=== PATIENT | male | born 1990 | race African-American/Black ===

== ENCOUNTER 2018-09-25 03:27 | Emergency (ER) | payer SELFPAY ==
[~2018-09-25] VITALS: Ht 182.9 cm; Wt 75.0 kg
[~2018-09-25 03:27] MED LIST: MULTIPLE VITAMI1 CAP PO; ROBAXIN 50500 MG/TAB PO; TRIAMCINOLONE0.1% TOP
[2018-09-25 03:28] VITALS: BP 133/88; TEMP 98.1
[2018-09-25 05:35] VITALS: PULSE 71
== END 2018-09-25 05:35 | disposition home or self-care (01) ==
LOC: COL.ER 03:27
DX: S01.112A Laceration without foreign body of left eyelid and periocular area, initial encounter (principal); S50.811A Abrasion of right forearm, initial encounter; Z23 Encounter for immunization; W20.8XXA Other cause of strike by thrown, projected or falling object, initial encounter

== ENCOUNTER 2021-05-11 16:39 | Emergency (ER) | payer SELFPAY ==
[~2021-05-11] VITALS: Ht 182.9 cm; Wt 77.3 kg
[2021-05-11 16:56] VITALS: TEMP 98.5
[2021-05-11 18:23] LABS: COLLECTION METHOD CLEAN CATCH
[2021-05-11 18:31] LABS: MUCOUS Present (NOT PRESENT); PH 6 (5-8); SQUAMOUS EPITHELIAL 0-2 /hpf (0-10); URINE APPEARANCE Hazy (CLEAR/HAZY); URINE BACTERIA None Seen (NONE SEEN); URINE BILIRUBIN Negative (NEGATIVE); URINE BLOOD Negative (NEGATIVE); URINE COLOR Yellow (YELLOW); URINE GLUCOSE Negative (NEGATIVE); URINE KETONE Negative (NEGATIVE); URINE LEUKOCYTE ESTERASE 2+ (NEGATIVE); URINE NITRATE Negative (NEGATIVE); URINE PROTEIN(semi-quant) Negative (NEGATIVE); URINE RBC 0-2 /hpf (0-2); URINE UROBILINOGEN Negative (NEGATIVE)
[2021-05-11 19:50] VITALS: BP 120/61; PULSE 88
== END 2021-05-11 19:55 | disposition home or self-care (01) ==
LOC: COL.ER 16:39
PROVIDERS: Nurse Practitioner Primary Care
DX: A54.9 Gonococcal infection, unspecified (principal)
CPT/HCPCS: J0696